=== PATIENT | male | born 1950 | race Caucasian/White ===

== ENCOUNTER → 2017-01-07 | Outpatient (CLI) | payer OTHER, BC | LOC: BHFA 16:15 | PROVIDERS: ATTEND Internal Medicine Cardiovascular Disease | DX: I71.2 Thoracic aortic aneurysm, without rupture (principal) ==

== ENCOUNTER 2018-07-22 06:05 | Inpatient (IN) | payer OTHER ==
[2018-07-22] MEDS ORDERED: ACETAMINOPHEN 325 MG TAB PO ONE (06:24)
[2018-07-22] MEDS ORDERED: DEXAMETHASONE 4 MG/ML VIAL IVP ONE (06:24)
[2018-07-22] MEDS ORDERED: FAMOTIDINE 20 MG TAB PO ONE (06:24)
[2018-07-22] MEDS ORDERED: ceFAZolin 2 GM/DEXTROSE 100 ML IV ONE (06:24)
--- NOTE | 2018-07-22 06:25 | PDHPUP ---
History & Physical Update H&P update statement: This history and physical update is based on an assessment of the patient which was completed after admission or registration (within 24 hours), but prior to the surgery/procedure. H&P update: H&P reviewed & patient examined, no change in patient's condition since H&P completed
[2018-07-22] MEDS ORDERED: TRANEXAMIC ACID 3,000 MG/50 ML BAG IRR ONE (06:44)
[2018-07-22] MEDS ORDERED: MIDAZOLAM 2 MG/2 ML VIAL IVP ONE (07:39)
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
[2018-07-22] MEDS ORDERED: PROPOFOL/EMULSION 500 MG/50 ML BOTTLE IV ONE ×2 (07:49→08:48)
[2018-07-22] MEDS ORDERED: DEXAMETHASONE 4 MG/ML VIAL ONE (08:05)
[2018-07-22] MEDS ORDERED: LR 500 ML IV PRN (08:25)
[2018-07-22] MEDS ORDERED: NALOXONE HCL 0.4 MG/ML INJ IVP PRN (08:25)
[2018-07-22] MEDS ORDERED: PROMETHAZINE HCL 25 MG/ML INJ IVP PRN ×2 (08:25→09:39)
[2018-07-22] MEDS ORDERED: ONDANSETRON 4 MG/2 ML VIAL IVP PRN ×2 (08:25→09:39)
[2018-07-22] MEDS ORDERED: oxyCODONE IR 5 MG TAB PO PRN ×2 (08:25→09:39)
[2018-07-22] MEDS ORDERED: ACETAMINOPHEN 500 MG TAB PO PRN (08:25)
[2018-07-22] MEDS ORDERED: ROPIVACAINE 0.2% 80 MG, EPINEPHrine 0.2 MG, KETOROLAC TROMETHAMINE 30 MG in SYRINGE 0 ML IU ONE (08:34)
[2018-07-22] MEDS ORDERED: TRANEXAMIC ACID 3,000 MG in NS (SYRINGE) 50 ML IRR ONE (08:34)
--- NOTE | 2018-07-22 09:38 | POSTOPPROG ---
Post Op Note Date of Operation: 07/22/18 Surgeon: Ansley Yanes Test Cell Technician: joselyn yanes PA-C Anesthesiologist: dr. velez Anesthesia: Spinal Pre-op Diagnosis: left hip OA Post-op Diagnosis: same Indication: left hip pain Procedure: L NAS ant approach Findings: severe hip OA Inf/Abcess present in the surg proc area at time of surgery?: No EBL: 100-500
[2018-07-22] MEDS ORDERED: LACTULOSE 20 GM/30 ML UDCUP PO PRN (09:39)
[2018-07-22] MEDS ORDERED: MAGNESIUM HYDROXIDE 30 ML UDCUP PO PRN (09:39)
[2018-07-22] MEDS ORDERED: TEMAZEPAM 15 MG CAP PO PRN (09:39)
[2018-07-22] MEDS ORDERED: BISACODYL 10 MG SUPP PR PRN (09:39)
[2018-07-22] MEDS ORDERED: DIPHENOXYLATE/ATROPINE LOMOTIL 1 TAB PO PRN (09:39)
[2018-07-22] MEDS ORDERED: PROMETHAZINE HCL 25 MG SUPPR PR PRN (09:39)
[2018-07-22] MEDS ORDERED: POLYETHYLENE GLYCOL 3350 17 GM PKT PO PRN (09:39)
[2018-07-22] MEDS ORDERED: ONDANSETRON DISINTEGRATING 4 MG TAB PO PRN (09:39)
[2018-07-22] MEDS ORDERED: diphenhydrAMINE 25 MG CAP PO PRN (09:39)
[2018-07-22] MEDS ORDERED: METOCLOPRAMIDE 10 MG/2 ML VIAL IVP PRN (09:39)
[2018-07-22] MEDS ORDERED: fentaNYL 100 MCG/2 ML INJ ONE (09:47)
[2018-07-22] MEDS: fentaNYL 100 MCG/2 ML INJ IVP PRN ×2 (09:48→10:11)
[2018-07-22] MEDS ORDERED: LR 1,000 ML IV SCH (10:00)
--- NOTE | 2018-07-22 10:08 | POSTANESTH ---
Post Anesthetic Evaluation Cardiovascular Status: Normal, Stable, Similar to Pre-Op Cond Respiratory Status: Normal, Stable, Similar to Pre-op Cond. Level of Consciousness/Mental Status: Can Participate in Eval, Mildly Sleepy, Arousable Pain Control: Inadeq, Add Tx Required Nausea/Vomiting Control: Adequate, Prn Tx Ordered Complications Possibly Related to Anesthesia: None Noted
[2018-07-22] MEDS ORDERED: DIAZEPAM 5 MG/ML 1 ML SYR ONE (10:12)
[2018-07-22] MEDS: DIAZEPAM 5 MG/ML 1 ML SYR IVP PRN ×2 (10:13→10:42)
[2018-07-22] MEDS: ACETAMINOPHEN 325 MG TAB PO SCH ×3 (11:53→23:51)
--- NOTE | 2018-07-22 13:11 | PDMN ---
Medical Necessity Medical necessity: S560 Hip Arthroplasty: 68 yo s/p L NAS, MC IP only
[2018-07-22] MEDS: CYCLOBENZAPRINE 10 MG TAB PO PRN ×2 (15:03→23:52)
[2018-07-22] MEDS: ceFAZolin 2 GM/DEXTROSE 100 ML IV SCH (18:53)
[2018-07-22] MEDS: ASPIRIN 81 MG CHEWABLE TAB PO SCH (20:44)
[2018-07-22] MEDS: SENNOSIDES/DOCUSATE SODIUM TAB PO SCH (20:45)
[2018-07-22] MEDS: FAMOTIDINE 20 MG TAB PO SCH (20:45)
[2018-07-23] MEDS: ceFAZolin 2 GM/DEXTROSE 100 ML IV SCH (01:47)
[2018-07-23] MEDS: ACETAMINOPHEN 325 MG TAB PO SCH ×2 (06:34→12:25)
[2018-07-23 07:50] VITALS: BP 118/87
[2018-07-23] MEDS: SENNOSIDES/DOCUSATE SODIUM TAB PO SCH (08:00)
[2018-07-23] MEDS: FAMOTIDINE 20 MG TAB PO SCH (08:00)
[2018-07-23] MEDS: ASPIRIN 81 MG CHEWABLE TAB PO SCH (08:01)
[2018-07-23] MEDS: CYCLOBENZAPRINE 10 MG TAB PO PRN (08:01)
--- NOTE | 2018-07-23 10:59 | SOAPPROG ---
SOAP Progress Note Assessment/Plan: Assessment: Patient is doing well POD 1 s/p LTHA Pain management: pain is well controlled on oral pain meds. VTE ppx: recommend 81 mg aspirin morning and evening for 4 weeks, cont BLANCA and SCDs Anemia: level is expected initially postop. Asymptomatic. Continue to monitor Pt. initially required straight cath but was later able to void without cath D/c planning:patient has done much better than anticipated. Patient is stable, BP stable, pain well controlled and patient is eager for discharge to home. May d/c to home today pending release from PT Plan: 07/23/18 10:57 Subjective: no nausea, vomiting, chest pain or shortness of breath. Pain well-controlled Objective: Vital Signs Temp Pulse Resp BP Pulse Ox 36.9 C 78 14 118/87 H 96 07/23/18 07:48 07/23/18 07:48 07/23/18 07:48 07/23/18 07:48 07/23/18 07:48 Laboratory Results 07/23/18 05:00 07/22/18 07/23/18 07/24/18 05:59 05:59 05:59 Intake Total 3750 Output Total 2675 Balance 1075 LLE: incision dressing clean and dry, NVI, positive DF/PF ICD10 Worksheet Patient Problems: Problems Problem Status Onset Primary localized osteoarthritis of left hip Acute Anxiety Acute Depression - Depressive disorder Acute Severe major depression without psychotic features Acute
--- NOTE | 2018-07-23 21:43 | GOP ---
DATE OF OPERATION: 07/22/2018 SURGEON: Elsy Malik MD PSYCHIATRIC LPN: JOSE ALBERTO Lee ANESTHESIA: Spinal. PREOPERATIVE DIAGNOSIS: Left hip osteoarthritis. POSTOPERATIVE DIAGNOSIS: Left hip osteoarthritis. PROCEDURE PERFORMED: Left total hip arthroplasty. FINDINGS: ESTIMATED BLOOD LOSS: 200 mL. INDICATIONS: The patient has progressively worsening arthritis of the hip which has failed medical m anagement. The patient understands the treatment options including continued non-operative care and has selected surgical intervention. The patient has decided to undergo total hip arthroplasty via th e direct anterior approach, understanding the risks of the procedure including, but not limited to, n eurovascular injury, infection, persistent pain, component wear and loosening, deep venous thrombosis , pulmonary embolism, limb length inequality, hip instability (including dislocation), and intra-oper ative fractures. DESCRIPTION OF PROCEDURE: After proper identification of the patient including verification and vargas ing the surgical site, the patient was brought to the operating room and placed in the supine positio n. All bony prominences were well padded. Anesthesia was induced without complication and intraveno us prophylactic antibiotics were administered prior to skin incision. The operative leg was placed in the Trumpf Arch table extension and the well leg in a Yellofin leg ho lder. The patient was prepped and draped in the usual sterile fashion. The C-arm was draped for int ra-operative fluoroscopy to check acetabular position, femoral component position including leg lengt h and femoral offset. Attention was then drawn to surgical exposure of the hip. An incision was made with a #10 Bard Jerome r blade starting 3 cm lateral and 3 cm distal to the anterior superior iliac spine measuring 8-10 cm and coursing distally toward the greater trochanter. The skin and subcutaneous tissues were divided sharply down to the fascia leslye. The fascia leslye was incised in line with the skin incision exposing the underlying tensor fascia leslye muscle. The muscle was bluntly elevated from the fascia and the f irst extracapsular Cobra retractor was placed laterally at the junction of the superior femoral neck and greater trochanter. The lateral femoral circumflex vessels were identified, cauterized, and divi ded with the Aquamantys bipolar cautery. The deep investing fascia of the TFL was divided to allow p joe mobilization of the muscle preventing damage during the retraction. The reflected head of the rectus femoris muscle was elevated off the anterior hip capsule and a medial Cobra retractor was plac ed just proximal to the lesser trochanter. The anterior capsulotomy was made sharply from the superolateral acetabulum to the saddle junction of the superior femoral neck and greater trochanter, then coursing inferomedial towards the lesser troc hanter. The retractors were then placed in the intracapsular position for femoral neck osteotomy. C orresponding to pre-operative templating, the osteotomy was made with the oscillating saw carefully p rotecting the greater trochanter and soft tissues. The femoral head was removed from the acetabulum with a corkscrew and confirmed to be severely arthritic with exposed bone, deformity and osteophytes. Similar findings were confirmed in the acetabulum. The Arch table extension was then placed in 40 degrees external rotation. Attention was then drawn to the acetabular preparation. After placement of the anterior and posterio r Cobra retractors outside the labrum and intracapsular, the circumferential labrum was removed sharp ly. The foveal contents were then removed and hemostasis obtained with cautery. The first reamer selected was sized using the removed femoral head. Reaming began with medialization and then commenced in 2 mm increments at 45 degrees of abduction and 15 degrees of anteversion using fluoroscopic navigation. Reaming ceased 1 mm less than the definitive acetabular component and ellen esponded to the pre-operative templating. The final acetabular component was inserted using fluorosc opy to achieve proper orientation yielding excellent purchase and stability in the acetabulum. The f inal acetabular liner was then placed and its seating confirmed. Attention was then turned to the femur. The Arch table extension was placed in extension and adducti on, delivering the osteotomized femoral neck into the wound. A 2-pronged femoral elevator was placed at the calcar and another at the tip of the greater trochanter. The posterolateral capsule was rele ased with cautery allowing mobilization of the femur lateral and anterior for preparation. The exter nal rotators were visualized and preserved. A curette and rongeur were used to open the starting poi nt for broaching. Serial broaching started with the #0 broach and ended with the broach that exhibit ed excellent fit in the proximal femur. A change in pitch during mallet strikes was accompanied by t he inability to advance the broach any further. The trial reduction was performed and fluoroscopic n avigation was utilized to check limb length. Adjustments were made to equalize limb length according ly. After the final trials were accepted they were removed and the wound was copiously lavaged. The femo ral component was seated to the same depth as the final broach and the femoral head was impacted onto the clean trunnion. The hip was then reduced for the final time and once more fluoroscopy was used to check that limb length equality was achieved. The wound was irrigated and closed in layers, the fascia leslye with 2-0 Quill, the subcutaneous tissue with 2-0 Quill, and the skin with Dermabond. Sterile dressings were applied. Final sharps and spon ge counts were accurate. The patient was then transferred to a hospital bed and brought to [facility] room in stable condition. IMPLANT: Accolade II, size 8 at 127. Acetabular component is a Trident II, 60 mm. Liner is a Tride nt X3, 36 mm. Head is a Biolox delta 36 mm, +0. /[id number]/MODL
--- NOTE | 2018-07-26 10:21 | GDS ---
[f rep st] DISCHARGE SUMMARY ADMISSION DIAGNOSIS: Left hip osteoarthritis. DISCHARGE DIAGNOSIS: Left hip osteoarthritis. PROCEDURE: Left total hip arthroplasty. VTE PROPHYLAXIS: Recommend aspirin 81 mg twice daily for 4 weeks. BRIEF DESCRIPTION OF HOSPITAL STAY: Patient was admitted for an elective joint arthroplasty. The pa tient tolerated the procedure well and has passed physical therapy. The patient was given appropriat e antibiotic prophylaxis and venous thromboembolism prophylaxis. The patient's pain was well control led on oral pain medication, patient was holding down food, and had urinated. Decision was made to d ischarge the patient. The patient was given post-operative prescriptions pre-operatively. PLAN: To follow up with Dr. Malik at [facility] 3 weeks postop. /[id number]/MODL
== END 2018-07-23 14:14 | disposition home or self-care (01) | DRG 470 ==
LOC: F3N 06:05
PROVIDERS: ADMIT Orthopaedic Surgery; ATTEND Orthopaedic Surgery
PROC: 0SRB04A Replacement of Left Hip Joint with Ceramic on Polyethylene Synthetic Substitute, Uncemented, Open Approach (ICD-10-PCS; principal; 2018-07-22 08:00)
DX: M16.12 Unilateral primary osteoarthritis, left hip (principal); I45.6 Pre-excitation syndrome; K21.9 Gastro-esophageal reflux disease without esophagitis; R00.2 Palpitations; Z87.891 Personal history of nicotine dependence
CPT/HCPCS: 97116-GP; 97161-GP; J0171; J0690; J1100; J1885; J2250; J2704; J2795; J3010; J3360